=== PATIENT | male | born 1965 | race Caucasian/White ===

== ENCOUNTER 2017-09-13 22:58 | Inpatient (IN) | payer MEDICAID, OTHER ==
[~2017-09-13] VITALS: Ht 182.9 cm; Wt 65.1 kg
[2017-09-13 23:02] VITALS: Ht 182.9 cm; Wt 65.1 kg
[2017-09-13] MEDS ORDERED: METHYLPREDNISOLONE 125 MG INJ IV STA (23:16)
[2017-09-13] MEDS ORDERED: ALBUTEROL 0.5% (NEB) 2.5 MG/0.5 ML AMP INH STA (23:16)
[2017-09-13 23:48] LABS: BASOPHILS % 0.4 % (0.0-2.0); EOSINOPHILS # 0.1 10^3/ul (0.0-0.5); EOSINOPHILS % 0.9 % (0.0-7.0); HEMATOCRIT 44.2 % (42.0-52.0); HEMOGLOBIN 14.2 g/dl (14.0-18.0); LYMPHOCYTES # 2.2 10^3/ul (0.8-2.9); LYMPHOCYTES % 22.9 % (15.0-51.0); MEAN CORPUSCULAR HEMOGLOBIN 32.5 pg (29.0-33.0); MEAN CORPUSCULAR HGB CONC 32.1 g/dl (32.0-37.0); MEAN CORPUSCULAR VOLUME 101.1 fl (82.0-101.0); MEAN PLATELET VOLUME 10.7 fl (7.4-10.4); MONOCYTE # 0.9 10^3/ul (0.3-0.9); MONOCYTES % 9.6 % (0.0-11.0); NEUTROPHIL # 6.2 10^3/ul (1.6-7.5); NEUTROPHILS % 65.3 % (39.0-77.0); PLATELET COUNT 244 10^3/UL (140-415); RED BLOOD COUNT 4.37 10^6/ul (4.70-6.10); RED CELL DISTRIBUTION WIDTH 13.9 % (11.5-14.5); WHITE BLOOD COUNT 9.5 10^3/ul (4.8-10.8)
--- NOTE | 2017-09-13 23:55 | RADRPT ---
PROCEDURE: XR Chest. CLINICAL INDICATION: Dyspnea and chest pain. TECHNIQUE: 2 frontal views of the chest. COMPARISON: None. FINDINGS: Prominent cardiomegaly. Mild right infrahilar airspace disease is nonspecific. Nodular/reticular int erstitial markings are seen and consider CT correlation. No signs of pleural fluid or pneumothorax a re seen. The osseous structures and soft tissues are unremarkable. IMPRESSION: 1. Possible right infrahilar airspace disease. 2. Nodular reticular interstitial markings are seen and consider CT correlation. RPTAT: [facility] Physician Demetrius Date Time Electronically viewed and signed by Physician Demetrius on 09/13/2017 23:55 RS/
[2017-09-14] VITALS (11 sets, daily range): BP systolic 98–115; BP diastolic 64–84; PULSE 83–93; RESP 19–26; TEMP 98.1
[2017-09-14 00:12] LABS: Arterial Base Excess -9.2 mmol/L (-3.0-3); Arterial COHb 0.8 % (0.0-3.0); Arterial Fraction of Oxyhgb 98.4 % (93.0-99.0); Arterial HCO3 14.2 mmol/L (22.0-26.0); Arterial MetHb 0.2 % (0.0-1.5); Arterial Total Hemglobin 15.1 g/dl (12.0-18.0); Blood Gas IEPAP 15/5; Blood Gas PS 10; MODE MASK - BIPAP
[2017-09-14 00:13] LABS: CALCIUM 9.2 mg/dl (8.4-10.2); CREATININE 2.02 mg/dl (0.61-1.24); POTASSIUM 5.6 mmol/L (3.5-5.1)
--- NOTE | 2017-09-14 00:23 | ERA ---
ER Documentation Chief Complaint Date/Time DATE: 09/14/17 TIME: 00:19 Chief Complaint BIBA for SOB, pt has hx chf HPI This is a 52-year-old male complains of shortness of breath. The patient states he has had some gradual worsening shortness of breath for the past 3 days. He says he had a slight dry cough but no fever. Says he has a history of heart failure and that his breathing got worse about 2-3 hours prior to arrival. Denies any chest pain denies any swelling in the legs the patient was brought in by EMS and had been given 5 sprays of sublingual nitroglycerin prior to arrival for heart failure and not for chest pain. Patient had a hard time wearing the CPAP mask by EMS but agreed to do it here to avoid intubation ROS All systems reviewed and are negative except as per history of present illness. Allergies Allergies: Coded Allergies: No Known Allergy (Unverified , 09/13/17) PMhx/Soc Hx Cardiac Disorders: Yes (CHF) Hx Tobacco Use: Yes Smoking Status: Current every day smoker FmHx Family History: No coronary disease Physical Exam Vitals Vital Signs Date Time Temp Pulse Resp B/P Pulse Ox O2 Delivery O2 Flow Rate FiO2 09/14/17 00:51 85 100 50 09/13/17 23:10 94 100 50 09/13/17 23:02 97.9 97 44 124/97 97 Physical Exam Const: Well-developed, well-nourished, moderate distress Head: Atraumatic, normocephalic Eyes: Normal Conjunctiva, PERRLA, EOMI, normal sclera, no nystagmus ENT: Normal External Ears, Nose and Mouth, moist mucus membranes. Neck: Full range of motion. No meningismus, no lymphadenopathy. Resp: Moderate to severe increased work of breathing, distant breath sounds with some crackles throughout Cardio: Tachycardia no murmurs, S1 S2 present Abd: Soft, non tender x 4, non distended. Normal bowel sounds, no guarding or rebound, no pulsitile abdominal masses or bruits Skin: No petechiae or rashes, no ecchymosis , no maculopapular rash Back: No midline or flank tenderness Ext: No cyanosis, or edema, FROM x 4, normal inspection, neurovascularly intact x 4 Neur: Awake and alert, STR 5/5 x 4, sensation intact x 4, no focal findings, cerebellum intact Psych: Normal Mood and Affect Result Diagram: 09/13/17 2330 09/13/17 2330 Results 24 hrs Laboratory Tests Test 09/13/17 23:30 09/13/17 23:45 White Blood Count 9.510^3/ul Red Blood Count 4.3710^6/ul Hemoglobin 14.2g/dl Hematocrit 44.2% Mean Corpuscular Volume 101.1fl Mean Corpuscular Hemoglobin 32.5pg Mean Corpuscular Hemoglobin Concent 32.1g/dl Red Cell Distribution Width 13.9% Platelet Count 33242^3/UL Mean Platelet Volume 10.7fl Neutrophils % 65.3% Lymphocytes % 22.9% Monocytes % 9.6% Eosinophils % 0.9% Basophils % 0.4% Nucleated Red Blood Cells % 0.0/100WBC Neutrophils # 6.210^3/ul Lymphocytes # 2.210^3/ul Monocytes # 0.910^3/ul Eosinophils # 0.110^3/ul Basophils # 0.010^3/ul Nucleated Red Blood Cells # 0.010^3/ul Sodium Level 138mmol/L Potassium Level 5.6mmol/L Chloride Level 100mmol/L Carbon Dioxide Level 18mmol/L Anion Gap 26 Blood Urea Nitrogen 48mg/dl Creatinine 2.02mg/dl Glucose Level 60mg/dl Calcium Level 9.2mg/dl Troponin I 0.053ng/ml B-Type Natriuretic Peptide 80184GY/ML Blood Gas Specimen Source Blood arterial Arterial Blood Date Drawn 09/14/2017 12:00:55 AM Arterial Blood pH (Temp corrected) 7.360 Arterial Blood pCO2 (Temp correct) 25.8mmhg Arterial Blood pO2 (Temp corrected) 259.5mmHG Arterial Blood HCO3 14.2mmol/L Arterial Blood Base Excess -9.2mmol/L Arterial Blood Oxygen Saturation 99.4mmHG Titus Test N/A Arterial Blood Gas Puncture Site Right Brachial Arterial Blood Carboxyhemoglobin 0.8% Arterial Blood Methemoglobin 0.2% Blood Gas A-a O2 Differential 68.0mmHg Oxyhemoglobin Percent 98.4% Total Hemoglobin 15.1g/dl Blood Gas Temperature 37.0C Blood Gas Respiration Rate 12.0 Blood Gas Actual Respiration Rate 30 Blood Gas Modality MASK - BIPAP FiO2 50.0% Blood Gas Pressure Support 10 Blood Gas IPAP/EPAP Ratio 15/5 Blood Gas Notified Whom UP Blood Gas Notified Time 09/14/2017 12:11:31 AM Current Medications Medications (Trade) Dose Ordered Sig/Aftab Route PRN Reason Start Time Stop Time Status Last Admin Dose Admin Methylprednisolone Sodium Succinate (Solu-Medrol) 125 mg ONCE STAT IV 09/13/17 23:16 09/13/17 23:19 DC 09/13/17 23:54 Albuterol (Proventil 0.5% (Neb)) 10 mg ONCE STAT INH 09/13/17 23:16 09/13/17 23:19 DC 09/13/17 23:22 Lorazepam (Ativan) 1 mg ONCE ONCE IV 09/14/17 00:30 09/14/17 00:31 DC 09/14/17 00:43 Procedures/MDM EKG: Rate/Rhythm: Normal sinus rhythm heart rate 93, right superior axis deviation, left bundle branch block QRS, ST, QT: NORMAL AL, wide QRS, QT] Impression: Abnormal PROCEDURE: XR Chest. CLINICAL INDICATION: Dyspnea and chest pain. TECHNIQUE: 2 frontal views of the chest. COMPARISON: None. FINDINGS: Prominent cardiomegaly. Mild right infrahilar airspace disease is nonspecific. Nodular/reticular interstitial markings are seen and consider CT correlation. No signs of pleural fluid or pneumothorax are seen. The osseous structures and soft tissues are unremarkable. IMPRESSION: 1. Possible right infrahilar airspace disease. 2. Nodular reticular interstitial markings are seen and consider CT correlation. RPTAT: [facility] Physician Demetrius Date Time Electronically viewed and signed by Physician Demetrius on 09/13/2017 23:55 RS/ CC: IMTIAZ ZAMORA DO Patient was put on BiPAP and is breathing much better. He became claustrophobic and ripped it off. We will give Ativan IV then replace the BiPAP machine. Patient has possible airspace disease. Will get some cultures and give some antibiotics just in case he has pneumonia. Patient's BNP is markedly elevated will give some Lasix Critical Care Time: 30 minutes Treatments/Evaluations: Close monitoring and treatment of unstable vital signs, cardiorespiratory, and neurologic status, while maintaining tight balance of fluid, respiratory, and cardiac interventions. This time includes discussing the case with the patient and the patient's family. This time does not include all procedures stated elsewhere in this record. This time also includes reviewing old records, labs and radiological studies. This time includes examining and re-examining the patient. Additionally, this time also includes arranging care with admitting and consulting physicians. Departure Diagnosis: Primary Impression: Respiratory distress Additional Impression: CHF (congestive heart failure) Qualified Code: I50.9 - Acute on chronic congestive heart failure, unspecified congestive heart failure type Condition: Stable IMTIAZ ZAMORA DO Sep 14, 2017 00:23
[2017-09-14] MEDS ORDERED: LORAZEPAM 2 MG INJ IV ONE (00:30)
[2017-09-14 00:32] LABS: TROPONIN-I 0.053 ng/ml (0.00-0.12)
[2017-09-14] MEDS ORDERED: ACETAMINOPHEN 325 MG TAB PO PRN (01:30)
[2017-09-14] MEDS ORDERED: ONDANSETRON 4 MG INJ IV PRN ×2 (01:30)
[2017-09-14] MEDS ORDERED: NITROGLYCERIN (SL) 0.4 MG TAB SL PRN (01:30)
[2017-09-14] MEDS ORDERED: NACL 0.9% 3 ML SYG IV SCH (01:30)
[2017-09-14] MEDS ORDERED: FUROSEMIDE 40 MG INJ IV ONE (01:30)
--- NOTE | 2017-09-14 03:27 | RADRPT ---
PROCEDURE: CT chest without contrast. CLINICAL INDICATION: Pain TECHNIQUE: Noncontrast CT of the chest was performed utilizing axial images with reconstructions i n sagittal and coronal planes. The administered radiation dose is CTDI 6.6 mGy, DLP 277 mGy-cm. One or more of the following dose reduction techniques were used: automated exposure control, adjustment of the mA and/or kV according to patient size and/or use of iterative reconstruction technique. COMPARISON: No pertinent prior examinations are submitted for comparison. FINDINGS: Chest: Pulmonary emphysematous changes are present. There is a small right pleural effusion. Some debris is noted within the graciela and mainstem bronchi. A few scattered nodules are noted within both lungs. The largest of these is seen in the left lower lobe on image 77 of series 4 and measures up to 7 mm. There is moderate to marked cardiomegaly. No pericardial effusion is seen. Enlarged lymph nodes are seen within the prevascular, paratracheal, subcarinal and hilar regions. Bi lateral gynecomastia is noted. Visualized Upper abdomen: Unremarkable. Osseous structures: Multiple mild compression deformities are noted throughout the thoracic spine. N o definite acute fractures are seen. IMPRESSION: Multiple nodules throughout the lungs possibly due to infection or neoplasm. These measure up to 7 m m in the left lower lobe. Follow-up is recommended in 3-6 months and 18-24 months. Pulmonary emphysematous changes. Debris within the graciela and mainstem bronchi. Mediastinal and bilateral hilar adenopathy which is nonspecific. Small right pleural effusion. Compression deformities throughout the thoracic spine which are likely chronic unless the patient espinoza s acute back pain. RPTAT: HIKT .Fidel Taylor MD, Date Time Electronically viewed and signed by .Fidel Taylor MD, on 09/14/2017 03:27 .T/
[2017-09-14] MEDS ORDERED: LEVALBUTEROL (NEB) 0.31 MG/3 ML AMP HHN PRN (05:00)
[2017-09-14] MEDS ORDERED: DEXTROSE 50% 50 ML SYRINGE IV ONE (05:30)
[2017-09-14] MEDS: FUROSEMIDE 40 MG INJ IV SCH ×2 (05:34→18:25)
[2017-09-14] MEDS ORDERED: PANTOPRAZOLE 40 MG INJ IV SCH (06:00)
[2017-09-14 07:45] LABS: ADD UMIC NO; UR ASCORBIC ACID NEGATIVE (NEGATIVE); UR BILIRUBIN (Dip) NEGATIVE (NEGATIVE); UR BLOOD (Dip) NEGATIVE (NEGATIVE); UR CLARITY SLIGHTLY CLOUDY (CLEAR); UR COLOR YELLOW (YELLOW); UR GLUCOSE (Dip) NEGATIVE (NEGATIVE); UR KETONES (Dip) NEGATIVE (NEGATIVE); UR LEUKOCYTE ESTERASE (Dip) NEGATIVE Leu/ul (NEGATIVE); UR NITRITE (Dip) NEGATIVE (NEGATIVE); UR RBC 3 /HPF (0-5); UR SPECIFIC GRAVITY (Dip) 1.009 (1.003-1.030); UR TOTAL PROTEIN (Dip) NEGATIVE (NEGATIVE); UR UROBILINOGEN (Dip) NEGATIVE (NEGATIVE)
--- NOTE | 2017-09-14 07:45 | HP ---
Date/Time of Note Date/Time of Note DATE: 09/14/17 TIME: 07:39 Assessment/Plan VTE Prophylaxis VTE Prophylaxis Intervention: SCD's Lines/Catheters IV [facility]from [facility] Assessment/Plan Chief Complaint/Hosp Course This is a 52-year-old male being admitted to the telemetry floor for: #1 acute respiratory failure: Patient currently requiring BiPAP secondary to underlying copd and/or chf exacerbation. #2 shortness of breath: CHF versus COPD exacerbation. Patient's BNP is 26,000. There is diffuse expiratory wheezing on exam. Patient does not have any pitting edema of the bilateral lower extremities. At the current time we will treat with Lasix 40 mg IV twice daily. Will also continue breathing treatments with nebs every 4 hours. He received a loading dose of steroids in the ED. Will consider whether this needs to be continued. Will consult cardiology. Will order an echocardiogram. #3 Elevated BNP: secondary to CHF, though unclear if new onset or established secondary to patient not being able to provide a history at this time and no records. Will also check a urine drug screen to assess for drug related causes of heart failure #4 DVT GI prophylaxis: SCDs, acid miguel We will need to obtain further history from the patient when he is more arousable. Will also check a urine drug screen. further treatment strategy as per the clinical course. Problems: HPI/ROS Admit Date/Time Admit Date/Time Sep 14, 2017 at 01:12 Hx of Present Illness Chief complaint: Shortness of breath The following history was obtained from the ED physician documentation the patient was sleepy/somnolent during my examination this is a 52-year-old male complains of shortness of breath. The patient states he has had some gradual worsening shortness of breath for the past 3 days. He says he had a slight dry cough but no fever. Says he has a history of heart failure and that his breathing got worse about 2-3 hours prior to arrival. Denies any chest pain denies any swelling in the legs the patient was brought in by EMS and had been given 5 sprays of sublingual nitroglycerin prior to arrival for heart failure and not for chest pain. Patient had a hard time wearing the CPAP mask by EMS but agreed to do it here to avoid intubation. Of note in the ED patient was agitated and he was pulling off his BiPAP. He was given Ativan. Upon my examination patient was noted to be very sleepy likely secondary to the Ativan and he was not cooperative during his physical exam and history taking secondary to somnolence. Allergies: NKDA Medications: See KAYLEE PAGAN Subjective hx not possible: other (Patient sleepy/somnolent) PMH/Family/Social Past Medical History Unable to obtain secondary to patient's somnolence Past Surgical History Unable to obtain secondary to patient's somnolence Family History Significant Family History: other (Unable to obtain secondary to patient's somnolence) Social History Unable to obtain secondary to patient's somnolence Exam/Review of Systems Vital Signs Vitals Vital Signs Date Time Temp Pulse Resp B/P Pulse Ox O2 Delivery O2 Flow Rate FiO2 09/14/17 07:19 98.6 90 26 115/84 100 09/14/17 05:45 35 09/14/17 03:13 Room Air Exam Exam General: Patient is well-developed well-nourished The patient is alert oriented -3 lying comfortably in bed. HEENT: Atraumatic, normocephalic. The pupils are equal, round and reactive. Extraocular motor are intact Neck: Supple with full range of motion. No rigidity or meningismus Chest: Nontender Lungs: Clear to auscultation bilaterally no crackles rales or wheezing Heart: Normal S1-S2, Regular rhythm and rate. No murmur, S3, or S4 Abdomen: Soft , nontender, nondistended , bowel sounds are present. No guarding no rebound tenderness , No masses or organomegaly. No costovertebral temporal angle mass Extremities: Normal to inspection, no edema no cyanosis Neurologic: Normal mental status, speech normal, cranial nerves II through XII are intact, motor and sensory are intact, no focal weakness Additional Comments PROCEDURE: CT chest without contrast. CLINICAL INDICATION: Pain TECHNIQUE: Noncontrast CT of the chest was performed utilizing axial images with reconstructions in sagittal and coronal planes. The administered radiation dose is CTDI 6.6 mGy, DLP 277 mGy-cm. One or more of the following dose reduction techniques were used: automated exposure control, adjustment of the mA and/or kV according to patient size and/or use of iterative reconstruction technique. COMPARISON: No pertinent prior examinations are submitted for comparison. FINDINGS: Chest: Pulmonary emphysematous changes are present. There is a small right pleural effusion. Some debris is noted within the graciela and mainstem bronchi. A few scattered nodules are noted within both lungs. The largest of these is seen in the left lower lobe on image 77 of series 4 and measures up to 7 mm. There is moderate to marked cardiomegaly. No pericardial effusion is seen. Enlarged lymph nodes are seen within the prevascular, paratracheal, subcarinal and hilar regions. Bilateral gynecomastia is noted. Visualized Upper abdomen: Unremarkable. Osseous structures: Multiple mild compression deformities are noted throughout the thoracic spine. No definite acute fractures are seen. IMPRESSION: Multiple nodules throughout the lungs possibly due to infection or neoplasm. These measure up to 7 mm in the left lower lobe. Follow-up is recommended in 3- 6 months and 18-24 months. Pulmonary emphysematous changes. Debris within the graciela and mainstem bronchi. Mediastinal and bilateral hilar adenopathy which is nonspecific. Small right pleural effusion. Compression deformities throughout the thoracic spine which are likely chronic unless the patient has acute back pain. RPTAT: HIKT .Fidel Taylor MD, Date Time Electronically viewed and signed by .Fidel Taylor MD, MD on 09/14/2017 03:27 .T/ CC: JELENA THAO PROCEDURE: XR Chest. CLINICAL INDICATION: Dyspnea and chest pain. TECHNIQUE: 2 frontal views of the chest. COMPARISON: None. FINDINGS: Prominent cardiomegaly. Mild right infrahilar airspace disease is nonspecific. Nodular/reticular interstitial markings are seen and consider CT correlation. No signs of pleural fluid or pneumothorax are seen. The osseous structures and soft tissues are unremarkable. IMPRESSION: 1. Possible right infrahilar airspace disease. 2. Nodular reticular interstitial markings are seen and consider CT correlation. RPTAT: [facility] R Stecher, Physician Date Time Electronically viewed and signed by Kim Leiva Physician on 09/13/2017 23:55 RS/ CC: IMTIAZ ZAMORA DO Labs Result Diagram: 09/13/17232909/13/172329 Medications Medications Current Medications Ondansetron HCl (Zofran Inj) 4 mg Q6H PRN IV NAUSEA AND/OR VOMITING; Start at 01:30 Nitroglycerin (Nitroglycerin (Sl Tab) 0.4 Mg) 1 tab Q5M PRN SL CHEST PAIN; Start 09/14/17 at 01:30 Acetaminophen (Tylenol Tab) 650 mg Q6H PRN PO PAIN LEVEL 1-3 OR FEVER; Start 09/14/17 at 01:30 Pantoprazole (Protonix Iv) 40 mg DAILY@06 IV Last administered on 09/14/17t 05 :34; Admin Dose 40 MG; Start 09/14/17 at 06:00 JELENA THAO Sep 14, 2017 07:45
[2017-09-14 07:46] LABS: ABNORMAL IP MESSAGE 1; BASOPHILS % 0.1 % (0.0-2.0); HEMOGLOBIN 13.8 g/dl (14.0-18.0); LYMPHOCYTES # 0.5 10^3/ul (0.8-2.9); LYMPHOCYTES % 7.2 % (15.0-51.0); MEAN CORPUSCULAR HEMOGLOBIN 32.2 pg (29.0-33.0); MEAN CORPUSCULAR HGB CONC 33.7 g/dl (32.0-37.0); MEAN CORPUSCULAR VOLUME 95.8 fl (82.0-101.0); MEAN PLATELET VOLUME 10.9 fl (7.4-10.4); MONOCYTE # 0.1 10^3/ul (0.3-0.9); NEUTROPHIL # 6.3 10^3/ul (1.6-7.5); NEUTROPHILS % 90.1 % (39.0-77.0); PLATELET COUNT 209 10^3/UL (140-415); POSITIVE DIFF @See below; RED BLOOD COUNT 4.28 10^6/ul (4.70-6.10); RED CELL DISTRIBUTION WIDTH 13.9 % (11.5-14.5)
[2017-09-14 08:09] LABS: ALBUMIN 3.5 g/dl (3.3-4.9); ALBUMIN/GLOBULIN RATIO 0.94; CALCIUM 8.6 mg/dl (8.4-10.2); CHOL/HDL RATIO 6.1 RATIO; CREATININE 1.62 mg/dl (0.61-1.24); MAGNESIUM 1.9 mg/dl (1.7-2.5); POTASSIUM 3.9 mmol/L (3.5-5.1); TOTAL PROTEIN 7.2 g/dl (6.1-8.1)
[2017-09-14 08:29] LABS: TROPONIN-I 0.057 ng/ml (0.00-0.12)
[2017-09-14 08:30] LABS: CK-MB 4.01 ng/ml (0.0-2.4)
[2017-09-14 08:38] LABS: THYROID STIMULATING HORMONE 1.81 MIU/L (0.465-4.680)
[2017-09-14] MEDS: METHYLPREDNISOLONE 40 MG INJ IV SCH ×3 (10:45→21:30)
--- NOTE | 2017-09-14 11:55 | CONS ---
Date/Time of Note Date/Time of Note DATE: 09/14/17 TIME: 11:51 Assessment/Plan Assessment/Plan Additional Assessment/Plan Acute decompensated systolic congestive heart failure Cardiomyopathy Acute kidney injury Tobacco use Illicit drug use -In discussion with patient, he tells me he was diagnosed with congestive heart failure over a year ago and outside facility. He has been hospitalized approximately 3 times in the past year. When asked about illicit drug use, he does admit to the use of methamphetamine as well as "speed", first he said approximately 6 months ago and then later a few weeks ago. He tells me he does take Coreg, Aldactone and Lasix at home but is unclear on his compliance. CT chest with no significant volume overload. Would continue diuretics as renal function and blood pressure permits, start hydralazine for afterload reduction as blood pressure permits given renal dysfunction. Check echocardiogram. Initial 2 sets of cardiac enzymes have remained unremarkable. Maintain potassium above 4.0 and magnesium above 2.0. sales agent business services involvement. Consultation Date/Type/Reason Admit Date/Time Sep 14, 2017 at 01:12 Type of Consultation: cv Reason for Consultation Shortness of breath Hx of Present Illness This is a 52-year-old male with past medical history of congestive heart failure , tobacco use, illicit drug use who presents with progressive worsening shortness of breath over the past 3-4 days. Patient also complaining of cough which is been mildly productive with phlegm. Denies any chest pain, dizziness or lightheadedness. Since his admission, he is feeling better with less shortness of breath. Denies any fevers or chills. Denies any abdominal pain or nausea. He denies exertional chest pain but has been having shortness of breath at rest and with activity. 12 point review of systems was performed with all pertinent positives and negatives mentioned above and all else is negative Past Medical History Medical History: congestive heart failure, hypertension Family History Significant Family History: no pertinent family hx Social History Alcohol Use: none Smoking Status: Current every day smoker Drug Use: other (Methamphetamine, speed) Exam/Review of Systems Vital Signs Vitals Vital Signs Date Time Temp Pulse Resp B/P Pulse Ox O2 Delivery O2 Flow Rate FiO2 09/14/17 08:23 85 09/14/17 07:19 98.6 26 115/84 100 09/14/17 05:45 35 09/14/17 03:13 Room Air Exam Poor hygiene, no apparent distress Constitutional: alert, oriented Head: normocephalic Respiratory: other (Coarse breath sounds bilaterally, no wheezing) Cardiovascular: other (S1-S2 heard), regular rate and rhythm Gastrointestinal: bowel sounds, non-tender, soft Extremities: edema (Trace) Results Result Diagram: 09/14/17 0627 09/14/1727 Results 24 hrs Laboratory Tests Test 09/13/17 23:30 09/13/17 23:45 09/14/17 05:20 09/14/17 06:27 White Blood Count 9.5 7.0 # Red Blood Count 4.37 L 4.28 L Hemoglobin 14.2 13.8 L Hematocrit 44.2 41.0 L Mean Corpuscular Volume 101.1 H 95.8 Mean Corpuscular Hemoglobin 32.5 32.2 Mean Corpuscular Hemoglobin Concent 32.1 33.7 Red Cell Distribution Width 13.9 13.9 Platelet Count 244 209 Mean Platelet Volume 10.7 H 10.9 H Neutrophils % 65.3 90.1 H Lymphocytes % 22.9 7.2 L Monocytes % 9.6 2.0 Eosinophils % 0.9 0.0 Basophils % 0.4 0.1 Nucleated Red Blood Cells % 0.0 0.0 Neutrophils # 6.2 6.3 Lymphocytes # 2.2 0.5 L Monocytes # 0.9 0.1 L Eosinophils # 0.1 0.0 Basophils # 0.0 0.0 Nucleated Red Blood Cells # 0.0 0.0 Sodium Level 138 136 Potassium Level 5.6 H 3.9 Chloride Level 100 102 Carbon Dioxide Level 18 L 22 Anion Gap 26 H 16 # Blood Urea Nitrogen 48 H 57 H Creatinine 2.02 H 1.62 H Glucose Level 60 L 176 # Calcium Level 9.2 8.6 Troponin I 0.053 0.057 B-Type Natriuretic Peptide 88062 H Blood Gas Specimen Source Blood arterial Arterial Blood Date Drawn 09/14/2017 12:00:55 AM Arterial Blood pH (Temp corrected) 7.360 Arterial Blood pCO2 (Temp correct) 25.8 L Arterial Blood pO2 (Temp corrected) 259.5 H Arterial Blood HCO3 14.2 L Arterial Blood Base Excess -9.2 L Arterial Blood Oxygen Saturation 99.4 H Titus Test N/A Arterial Blood Gas Puncture Site Right Brachial Arterial Blood Carboxyhemoglobin 0.8 Arterial Blood Methemoglobin 0.2 Blood Gas A-a O2 Differential 68.0 H Oxyhemoglobin Percent 98.4 Total Hemoglobin 15.1 Blood Gas Temperature 37.0 Blood Gas Respiration Rate 12.0 Blood Gas Actual Respiration Rate 30 Blood Gas Modality MASK - BIPAP FiO2 50.0 Blood Gas Pressure Support 10 Blood Gas IPAP/EPAP Ratio 15/5 Blood Gas Notified Whom UP Blood Gas Notified Time 09/14/2017 12:11:31 AM Urine Color YELLOW Urine Clarity SLIGHTLY CLOUDY A Urine pH 5.0 Urine Specific [place] 1.009 Urine Ketones NEGATIVE Urine Nitrite NEGATIVE Urine Bilirubin NEGATIVE Urine Urobilinogen NEGATIVE Urine Leukocyte Esterase NEGATIVE Urine Microscopic RBC 3 Urine Microscopic WBC 1 Urine Hemoglobin NEGATIVE Urine Glucose NEGATIVE Urine Total Protein NEGATIVE Hemoglobin A1c 5.9 Magnesium Level 1.9 Total Bilirubin 3.0 H Direct Bilirubin 0.00 Indirect Bilirubin 3.0 H Aspartate Amino Transf (AST/SGOT) 539 H Alanine Aminotransferase (ALT/SGPT) 326 H Alkaline Phosphatase 121 Creatine Kinase 60 Creatine Kinase Index 6.7 Creatinine Kinase MB (Mass) 4.01 H Total Protein 7.2 Albumin 3.5 Globulin 3.70 H Albumin/Globulin Ratio 0.94 Triglycerides Level 55 Cholesterol Level 123 LDL Cholesterol, Calculated 92 HDL Cholesterol 20 L Cholesterol/HDL Ratio 6.1 Thyroid Stimulating Hormone (TSH) 1.810 Test 09/14/17 06:30 Bedside Glucose 170 Medications Medications Current Medications Ondansetron HCl (Zofran Inj) 4 mg Q6H PRN IV NAUSEA AND/OR VOMITING; Start at 01:30 Nitroglycerin (Nitroglycerin (Sl Tab) 0.4 Mg) 1 tab Q5M PRN SL CHEST PAIN; Start 09/14/17 at 01:30 Acetaminophen (Tylenol Tab) 650 mg Q6H PRN PO PAIN LEVEL 1-3 OR FEVER; Start 09/14/17 at 01:30 Pantoprazole (Protonix Iv) 40 mg DAILY@06 IV Last administered on 09/14/17 05 :34; Admin Dose 40 MG; Start 09/14/17 at 06:00 Methylprednisolone Sodium Succinate (Solu-Medrol) 30 mg Q8 IV Last administered on 09/14/17 10:45; Admin Dose 30 MG; Start 09/14/17 at 08:00 Procedures Procedures ECG done yesterday demonstrates sinus rhythm at 93 bpm, QRS 170 ms with left bundle branch block, nonspecific T-wave abnormalities Edgard Decker DO Sep 14, 2017 11:55
[2017-09-14] MEDS ORDERED: MAGNESIUM SULFATE 2 GM/50 ML 50 ML IVPB ONE (12:00)
[2017-09-14] MEDS ORDERED: POTASSIUM CHLORIDE (SR) 10 MEQ TAB PO ONE (12:00)
[2017-09-14 12:42] LABS: TROPONIN-I 0.04 ng/ml (0.00-0.12)
[2017-09-14 12:45] LABS: CK-MB 3.69 ng/ml (0.0-2.4)
[2017-09-14] MEDS: LORAZEPAM 0.5 MG TAB PO PRN (16:35)
[2017-09-15] VITALS (14 sets, daily range): BP systolic 92–115; BP diastolic 57–74; PULSE 72–157; RESP 18–20
[2017-09-15] MEDS: PANTOPRAZOLE (EC) 40 MG TAB PO SCH (05:01)
[2017-09-15] MEDS: FUROSEMIDE 40 MG INJ IV SCH ×2 (05:01→17:47)
[2017-09-15] MEDS: METHYLPREDNISOLONE 40 MG INJ IV SCH (05:02)
[2017-09-15 06:05] LABS: HAAIG REFLEX REFLEX FILED
[2017-09-15 06:16] LABS: ABNORMAL IP MESSAGE 1; BASOPHILS % 0.1 % (0.0-2.0); HEMATOCRIT 37.7 % (42.0-52.0); HEMOGLOBIN 12.8 g/dl (14.0-18.0); LYMPHOCYTES # 0.5 10^3/ul (0.8-2.9); LYMPHOCYTES % 3.4 % (15.0-51.0); MEAN CORPUSCULAR HEMOGLOBIN 32.6 pg (29.0-33.0); MEAN CORPUSCULAR VOLUME 95.9 fl (82.0-101.0); MEAN PLATELET VOLUME 11.1 fl (7.4-10.4); MONOCYTE # 0.3 10^3/ul (0.3-0.9); NEUTROPHIL # 13.8 10^3/ul (1.6-7.5); PLATELET COUNT 205 10^3/UL (140-415); POSITIVE DIFF @See below; RED BLOOD COUNT 3.93 10^6/ul (4.70-6.10); RED CELL DISTRIBUTION WIDTH 13.8 % (11.5-14.5); WHITE BLOOD COUNT 14.6 10^3/ul (4.8-10.8)
[2017-09-15 06:57] LABS: MAGNESIUM 2.2 mg/dl (1.7-2.5); PHOSPHORUS 3.6 mg/dl (2.5-4.9)
[2017-09-15 07:20] LABS: CALCIUM 8.3 mg/dl (8.4-10.2); CREATININE 1.28 mg/dl (0.61-1.24); POTASSIUM 3.7 mmol/L (3.5-5.1)
[2017-09-15 07:36] LABS: HEPATITIS B CORE ANTIBODY REACTIVE (NEGATIVE)
--- NOTE | 2017-09-15 08:15 | RADRPT ---
PROCEDURE: US Abdomen (right upper quadrant). CLINICAL INDICATION: Right upper quadrant abdomen pain. TECHNIQUE: Multiple real-time longitudinal and transverse images of the right upper quadrant of th e abdomen were acquired utilizing a curved array transducer. Images were reviewed on a high-resoluti on PACS workstation. COMPARISON: None FINDINGS: The liver is normal in size and normal in echogenicity. There is no focal hepatic lesion. Color Doppler and pulsed Doppler sonography demonstrate normal a ntegrade flow in the portal vein. There is a gallbladder polyp measuring 0.4 cm. There are no gallstones in the gallbladder. There is mild gallbladder wall thickening measuring 3.4 mm. There is no pericholecystic fluid collection. The bile ducts are normal with the common bile duct measuring 3.6 mm in diameter. The visualized portions of the pancreas are unremarkable with obscuration of the tail of the pancrea s. No free fluid is present. The right kidney measures 10.6 x 4.1 cm. There is normal echogenicity of the right kidney. The ri ght kidney is hyperechoic which may indicate medical renal disease. There is no right renal mass or calculus. There is mild right hydronephrosis with no obstructing lesion visualized. IMPRESSION: 1. Gallbladder polyp measuring 0.4 cm. Follow-up ultrasound in 6 months is advised. 2. Mild gallbladder wall thickening. No gallstones. 3. Hyperechoic right kidney which may indicate medical renal disease. 4. Mild right hydronephrosis with no obstructing lesion visualized. Clinical correlation is advised . 5. Otherwise normal right upper quadrant abdomen ultrasound. RPTAT: QQ .Fly Taveras MD, MD Date Time Electronically viewed and signed by .Fly Taveras MD, MD on 09/15/2017 08:15 .R/
--- NOTE | 2017-09-15 09:59 | PN ---
Date/Time of Note Date/Time of Note DATE: 09/15/17 TIME: 09:58 Assessment/Plan VTE Prophylaxis VTE Prophylaxis Intervention: SCD's Lines/Catheters IV [facility]ter Type (from [facility]): Peripheral IV Urinary Cath still in place: No Assessment/Plan Chief Complaint/Hosp Course 1. Acute respiratory failure. Hypoxic. Most probably secondary to combination of COPD exacerbation and CHF exacerbation. Currently improved. Continue inhaled bronchodilators. Diuresis as per cardiology. Continue tapering dose of steroids. 2. Acute decompensated systolic congestive heart failure. The patient being followed by cardiology. Continue diuresis as per cardiology. 3. Cardiomyopathy. The patient being followed by cardiology. To be started on beta-blockers and DIONNA inhibitors if blood pressure allows. 4. Nicotine use. Cessation advised. Nicotine patch. 5. Acute kidney injury. Nonoliguric. Most probably secondary to hemodynamics and prerenal azotemia. Improving. Use nephrotoxic drugs with caution. 6. COPD. Continue inhaled bronchodilators. Start maintenance inhalers. 7. Transaminitis with hyperbilirubinemia. Etiology unclear. Hepatitis B surface antibody positive, hepatitis B core total antibody positive. Avoid hepatotoxic medications. Will involve gastroenterology on the case. Liver ultrasound showing mild gallbladder wall thickening and no gallstones with a gallbladder polyp measuring 0.4 cm. 8. Nonsustained ventricular tachycardia. Cardiology following. Currently in sinus rhythm. 9. Fluids, electrolytes, and nutrition. Low-cholesterol diet. 10. DVT prophylaxis. Bilateral sequential compression devices. 11. Plan. Continue careful diuresis. Taper down steroids. Start maintenance inhalers. Obtain gastroenterology consult. Case discussed with Dr. Putnam. Problems: Subjective 24 Hr Interval Summary Free Text/Dictation Denies any dyspnea. Denies any chest pain. Exam/Review of Systems Vital Signs Vitals Vital Signs Date Time Temp Pulse Resp B/P Pulse Ox O2 Delivery O2 Flow Rate FiO2 09/15/17 09:20 Nasal Cannula 4.0 09/15/17 08:16 94 09/15/17 07:51 97.7 19 115/74 98 09/14/17 05:45 35 Intake and Output 09/14/17 09/14/17 09/15/17 15:00 23:00 07:00 Intake Total 800 ml 500 ml Output Total 1200 ml Balance 800 ml -700 ml Exam General: Adequately build 52 year-old male lying in bed in no apparent distress. HEENT: Normocephalic, atraumatic. Eyes: Anicteric sclerae, conjunctivae clear. ENT: Nasal septum midline, oral mucosa moist. Neck supple, no JVD noticed. Respiratory: Bilaterally diminished breath sounds. No use of accessory muscles of respiration. No adventitious breath sounds. Cardiovascular: S1, S2 heard. No murmurs or gallops. Abdomen: Soft, nontender, and nondistended. Bowel sounds positive in all 4 quadrants. Genitourinary: Deferred. Extremities: No cyanosis no edema. Peripheral pulses palpable. Neurologic: Cranial nerves II through XII grossly intact. The patient is awake, alert, and oriented. Skin: Normal skin turgor. No skin rashes. Results Result Diagram: 09/15/1743 09/15/1743 Results 24 hrs Laboratory Tests Test 09/14/17 11:32 09/15/17 05:43 Creatine Kinase 99 Creatine Kinase Index 3.7 Creatinine Kinase MB (Mass) 3.69 H Troponin I 0.040 White Blood Count 14.6 #H Red Blood Count 3.93 L Hemoglobin 12.8 L Hematocrit 37.7 L Mean Corpuscular Volume 95.9 Mean Corpuscular Hemoglobin 32.6 Mean Corpuscular Hemoglobin Concent 34.0 Red Cell Distribution Width 13.8 Platelet Count 205 Mean Platelet Volume 11.1 H Neutrophils % 94.0 H Lymphocytes % 3.4 L Monocytes % 2.0 Eosinophils % 0.0 Basophils % 0.1 Nucleated Red Blood Cells % 0.0 Neutrophils # 13.8 H Lymphocytes # 0.5 L Monocytes # 0.3 Eosinophils # 0.0 Basophils # 0.0 Nucleated Red Blood Cells # 0.0 Sodium Level 136 Potassium Level 3.7 Chloride Level 100 Carbon Dioxide Level 27 Anion Gap 13 Blood Urea Nitrogen 47 H Creatinine 1.28 H Glucose Level 150 Calcium Level 8.3 L Phosphorus Level 3.6 Magnesium Level 2.2 Hepatitis A Antibody Total NEGATIVE Hepatitis B Surface Antigen NEGATIVE Hepatitis B Surface Antibody POSITIVE H Hepatitis B Core Total Antibody REACTIVE H Hepatitis C Antibody NEGATIVE Medications Medications Current Medications Ondansetron HCl (Zofran Inj) 4 mg Q6H PRN IV NAUSEA AND/OR VOMITING; Start at 01:30 Nitroglycerin (Nitroglycerin (Sl Tab) 0.4 Mg) 1 tab Q5M PRN SL CHEST PAIN; Start 09/14/17 at 01:30 Acetaminophen (Tylenol Tab) 650 mg Q6H PRN PO PAIN LEVEL 1-3 OR FEVER; Start 09/14/17 at 01:30 Methylprednisolone Sodium Succinate (Solu-Medrol) 30 mg Q8 IV Last administered on 09/15/17 05:02; Admin Dose 30 MG; Start 09/14/17 at 08:00 Hydralazine HCl (Apresoline) 10 mg BID PO Last administered on 09/15/17 09:16 ; Admin Dose 10 MG; Start 09/14/17 at 12:00 Pantoprazole (Protonix Tab) 40 mg DAILY@06 PO Last administered on 09/15/17 05:01; Admin Dose 40 MG; Start 09/15/17 at 06:00 Lorazepam (Ativan) 0.5 mg Q8H PRN PO ANXIETY Last administered on 09/14/17 16 :35; Admin Dose 0.5 MG; Start 09/14/17 at 15:30 Salmeterol Xinafoate/ Fluticasone (Advair 250/50 Diskus) 1 inh BID INH ; Start 09/15/17 at 11:00 DUARTE HERNANDEZ NP Sep 15, 2017 09:59
[2017-09-15] MEDS ORDERED: METHYLPREDNISOLONE (MEDROL) DOSE PACK PO SCH (10:00)
[2017-09-15] MEDS ORDERED: METHYLPREDNISOLONE 4 MG TAB PO SCH (10:00)
[2017-09-15] MEDS: NICOTINE (14 MG/24 HR) PATCH TRANSDERM SCH (10:52)
[2017-09-15] MEDS: SALMETEROL/FLUTICASONE 250/50 INHA INH SCH ×2 (10:52→20:04)
[2017-09-15 10:56] LABS: ALBUMIN 3.1 g/dl (3.3-4.9); BILIRUBIN,INDIRECT 1.5 mg/dl (0-1.1); BILIRUBIN,TOTAL 1.5 mg/dl (0.2-1.3); TOTAL PROTEIN 6.4 g/dl (6.1-8.1)
--- NOTE | 2017-09-15 10:57 | CONS ---
Date/Time of Note Date/Time of Note DATE: 09/15/17 TIME: 10:48 Assessment/Plan Assessment/Plan Chief Complaint/Hosp Course Impression: 1. Acute respiratory failure. Hypoxic. Most probably secondary to combination of COPD exacerbation and CHF exacerbation. Currently improved. 2. Acute decompensated systolic congestive heart failure. The patient being followed by cardiology. 3. Cardiomyopathy. The patient being followed by cardiology. 4. Nicotine use. 5. Transaminase elevation and hyperbilirubinemia: likely due to CHF exacerbation. Bili is all indirect. Patient cleared HBV due to HBV surface antigen negative and positive HBV antibody. 6. COPD. Continue inhaled bronchodilators. Start maintenance inhalers. 7. gallbladder wall thickening with a gallbladder polyp measuring 0.4 cm. Impression: 1. treat CHF as it it most likely cause of transaminases and indirect bilirubinemia 2. consider hematology eval for indirect bilirubinemia 3. consider surgery eval for gallbladder polyp. Cholecystectomy is indicated for gallbladder polyp of any size and cholecystitis or biliary colic 4. continue all supportive care Problems: Consultation Date/Type/Reason Admit Date/Time Sep 14, 2017 at 01:12 Date of Consultation: Sep 15, 2017 Type of Consultation: GI Reason for Consultation 52-year-old male who is admitted for shortness of breath. The patient states he has had some gradual worsening shortness of breath for the past 3 days. He says he had a slight dry cough but no fever. He has a history of heart failure and that his breathing got worse about 2-3 hours prior to arrival. Denies any chest pain denies any swelling in the legs the patient was brought in by EMS and had been given 5 sprays of sublingual nitroglycerin prior to arrival for heart failure and not for chest pain. GI consulted for hyperbilirubinemia but all indirect and elevated transaminases. He says he was drinking alcohol but refuse to quantitate amount. All point ROS administered. Pertinent positives and negatives in HPI otherwise negative. Past Medical History Medical History: congestive heart failure, hypertension Past Surgical History Past Surgical Hx: no surgical history Family History Significant Family History: no pertinent family hx Social History Alcohol Use: none Smoking Status: Current every day smoker Drug Use: other (Methamphetamine, speed) Exam/Review of Systems Vital Signs Vitals Vital Signs Date Time Temp Pulse Resp B/P Pulse Ox O2 Delivery O2 Flow Rate FiO2 09/15/17 10:40 4.0 09/15/17 09:20 Nasal Cannula 09/15/17 08:16 94 09/15/17 07:51 97.7 19 115/74 98 09/14/17 05:45 35 Intake and Output 09/14/17 09/14/17 09/15/17 15:00 23:00 07:00 Intake Total 800 ml 500 ml Output Total 1200 ml Balance 800 ml -700 ml Exam Constitutional: alert, oriented, well developed Psych: nl mood/affect, no complaints Head: atraumatic, normocephalic Eyes: EOMI, nl conjunctiva, nl lids, nl sclera ENMT: mucosa pink and moist, nl external ears & nose, nl lips & teeth, nl nasal mucosa & septum Neck: non-tender, supple Respiratory: congested cough, crackles/rales Cardiovascular: nl pulses, regular rate and rhythm Gastrointestinal: bowel sounds, non-tender, soft Musculoskeletal: nl extremities to inspection, nl gait and stance Neurological: nl mental status, nl speech, nl strength Results Result Diagram: 09/15/17 0543 09/15/1743 Results 24 hrs Laboratory Tests Test 09/14/17 11:32 09/15/17 05:43 Creatine Kinase 99 Creatine Kinase Index 3.7 Creatinine Kinase MB (Mass) 3.69 H Troponin I 0.040 White Blood Count 14.6 #H Red Blood Count 3.93 L Hemoglobin 12.8 L Hematocrit 37.7 L Mean Corpuscular Volume 95.9 Mean Corpuscular Hemoglobin 32.6 Mean Corpuscular Hemoglobin Concent 34.0 Red Cell Distribution Width 13.8 Platelet Count 205 Mean Platelet Volume 11.1 H Neutrophils % 94.0 H Lymphocytes % 3.4 L Monocytes % 2.0 Eosinophils % 0.0 Basophils % 0.1 Nucleated Red Blood Cells % 0.0 Neutrophils # 13.8 H Lymphocytes # 0.5 L Monocytes # 0.3 Eosinophils # 0.0 Basophils # 0.0 Nucleated Red Blood Cells # 0.0 Sodium Level 136 Potassium Level 3.7 Chloride Level 100 Carbon Dioxide Level 27 Anion Gap 13 Blood Urea Nitrogen 47 H Creatinine 1.28 H Glucose Level 150 Calcium Level 8.3 L Phosphorus Level 3.6 Magnesium Level 2.2 Hepatitis A Antibody Total NEGATIVE Hepatitis B Surface Antigen NEGATIVE Hepatitis B Surface Antibody POSITIVE H Hepatitis B Core Total Antibody REACTIVE H Hepatitis C Antibody NEGATIVE Medications Medications Current Medications Ondansetron HCl (Zofran Inj) 4 mg Q6H PRN IV NAUSEA AND/OR VOMITING; Start at 01:30 Nitroglycerin (Nitroglycerin (Sl Tab) 0.4 Mg) 1 tab Q5M PRN SL CHEST PAIN; Start 09/14/17 at 01:30 Acetaminophen (Tylenol Tab) 650 mg Q6H PRN PO PAIN LEVEL 1-3 OR FEVER; Start 09/14/17 at 01:30 Hydralazine HCl (Apresoline) 10 mg BID PO Last administered on 09/15/17 09:16 ; Admin Dose 10 MG; Start 09/14/17 at 12:00 Pantoprazole (Protonix Tab) 40 mg DAILY@06 PO Last administered on 09/15/17 05:01; Admin Dose 40 MG; Start 09/15/17 at 06:00 Lorazepam (Ativan) 0.5 mg Q8H PRN PO ANXIETY Last administered on 09/14/17 16 :35; Admin Dose 0.5 MG; Start 09/14/17 at 15:30 Salmeterol Xinafoate/ Fluticasone (Advair 250/50 Diskus) 1 inh BID INH ; Start 09/15/17 at 11:00 Nicotine (Nicoderm 14 Mg/ 24hr) 1 patch DAILY TRANSDERM ; Start 09/15/17 at 11: 00 Methylprednisolone (Medrol) 8 mg HS PO ; Start 09/16/17 at 21:00; Stop at 21:01 Methylprednisolone (Medrol) 4 mg HS PO ; Start 09/17/17 at 21:00; Stop at 21:01 Methylprednisolone (Medrol) 24 mg ONCE PO ; Start 09/15/17 at 10:00; Stop at 23:45 MERNA LEARY MD Sep 15, 2017 10:57
[2017-09-15] MEDS ORDERED: POTASSIUM CHLORIDE (SR) 20 MEQ TAB PO STA (11:53)
--- NOTE | 2017-09-15 11:53 | CONS ---
Date/Time of Note Date/Time of Note DATE: 09/15/17 TIME: 11:49 Assessment/Plan Assessment/Plan Additional Assessment/Plan Acute decompensated systolic congestive heart failure Cardiomyopathy Acute kidney injury Tobacco use NSVT Illicit drug use -In discussion with patient, he tells me he was diagnosed with congestive heart failure over a year ago and outside facility. He has been hospitalized approximately 3 times in the past year for congestive heart failure. When asked about illicit drug use, he does admit to the use of methamphetamine as well as "speed", first he said approximately 6 months ago and then later a few weeks ago. He appears more euvolemic. Would switch Lasix to daily, start Coreg , if renal function continues to improve, would switch hydralazine to DIONNA inhibitor. Maintain potassium above 4.0 and magnesium above 2.0. Consultation Date/Type/Reason Admit Date/Time Sep 14, 2017 at 01:12 Initial Consult Date 09/15/17 Type of Consultation: cv 24 HR Interval Summary Free Text/Dictation Shortness of breath is better today, less symptoms with ambulation, denies chest pain or palpitations Exam/Review of Systems Vital Signs Vitals Vital Signs Date Time Temp Pulse Resp B/P Pulse Ox O2 Delivery O2 Flow Rate FiO2 09/15/17 11:30 98.2 95 18 106/74 100 09/15/17 10:40 4.0 09/15/17 09:20 Nasal Cannula 09/14/17 05:45 35 Intake and Output 09/14/17 09/14/17 09/15/17 15:00 23:00 07:00 Intake Total 800 ml 500 ml Output Total 1200 ml Balance 800 ml -700 ml Exam No apparent distress, disheveled Constitutional: alert, oriented Head: normocephalic Respiratory: other (Coarse breath sounds bilaterally, no wheezing) Cardiovascular: other (S1-S2 heard), regular rate and rhythm Gastrointestinal: bowel sounds, non-tender, soft Extremities: edema (Trace) Results Result Diagram: 09/15/1743 09/15/1743 Results 24 hrs Laboratory Tests Test 09/15/17 05:43 White Blood Count 14.6 #H Red Blood Count 3.93 L Hemoglobin 12.8 L Hematocrit 37.7 L Mean Corpuscular Volume 95.9 Mean Corpuscular Hemoglobin 32.6 Mean Corpuscular Hemoglobin Concent 34.0 Red Cell Distribution Width 13.8 Platelet Count 205 Mean Platelet Volume 11.1 H Neutrophils % 94.0 H Lymphocytes % 3.4 L Monocytes % 2.0 Eosinophils % 0.0 Basophils % 0.1 Nucleated Red Blood Cells % 0.0 Neutrophils # 13.8 H Lymphocytes # 0.5 L Monocytes # 0.3 Eosinophils # 0.0 Basophils # 0.0 Nucleated Red Blood Cells # 0.0 Sodium Level 136 Potassium Level 3.7 Chloride Level 100 Carbon Dioxide Level 27 Anion Gap 13 Blood Urea Nitrogen 47 H Creatinine 1.28 H Glucose Level 150 Calcium Level 8.3 L Phosphorus Level 3.6 Magnesium Level 2.2 Total Bilirubin 1.5 H Direct Bilirubin 0.00 Indirect Bilirubin 1.5 H Aspartate Amino Transf (AST/SGOT) 247 #H Alanine Aminotransferase (ALT/SGPT) 267 H Alkaline Phosphatase 105 Total Protein 6.4 Albumin 3.1 L Hepatitis A Antibody Total NEGATIVE Hepatitis B Surface Antigen NEGATIVE Hepatitis B Surface Antibody POSITIVE H Hepatitis B Core Total Antibody REACTIVE H Hepatitis C Antibody NEGATIVE Medications Medications Current Medications Ondansetron HCl (Zofran Inj) 4 mg Q6H PRN IV NAUSEA AND/OR VOMITING; Start at 01:30 Nitroglycerin (Nitroglycerin (Sl Tab) 0.4 Mg) 1 tab Q5M PRN SL CHEST PAIN; Start 09/14/17 at 01:30 Acetaminophen (Tylenol Tab) 650 mg Q6H PRN PO PAIN LEVEL 1-3 OR FEVER; Start 09/14/17 at 01:30 Hydralazine HCl (Apresoline) 10 mg BID PO Last administered on 09/15/17 09:16 ; Admin Dose 10 MG; Start 09/14/17 at 12:00 Pantoprazole (Protonix Tab) 40 mg DAILY@06 PO Last administered on 09/15/17 05:01; Admin Dose 40 MG; Start 09/15/17 at 06:00 Lorazepam (Ativan) 0.5 mg Q8H PRN PO ANXIETY Last administered on 09/14/17 16 :35; Admin Dose 0.5 MG; Start 09/14/17 at 15:30 Salmeterol Xinafoate/ Fluticasone (Advair 250/50 Diskus) 1 inh BID INH Last administered on 09/15/17 10:52; Admin Dose 1 INH; Start 09/15/17 at 11:00 Nicotine (Nicoderm 14 Mg/ 24hr) 1 patch DAILY TRANSDERM Last administered on 10:52; Admin Dose 1 PATCH; Start 09/15/17 at 11:00 Methylprednisolone (Medrol) 8 mg HS PO ; Start 09/16/17 at 21:00; Stop at 21:01 Methylprednisolone (Medrol) 4 mg HS PO ; Start 09/17/17 at 21:00; Stop at 21:01 Methylprednisolone (Medrol) 24 mg ONCE PO Last administered on 09/15/17 10:57 ; Admin Dose 24 MG; Start 09/15/17 at 10:00; Stop 09/15/17 at 23:45 Edgard Decker DO Sep 15, 2017 11:52
[2017-09-15] MEDS ORDERED: MAGNESIUM SULFATE 1 GM/D5W 100 ML IVPB ONE (13:00)
--- NOTE | 2017-09-15 14:00 | RADRPT ---
Echocardiogram Report Patient Name: ANN RODRIGUEZ Gender: Male Date: 1965 Study Date: 14-Sep-2017 Ceramic Sprayer: Serjio [facility] Location: [id number] Ref. Physician: JELENA THAO Quality: Adequate Procedures: Transthoracic echocardiogram with complete 2D, M-Mode, and doppler examination. Indications: Shortness of breath. 2D/M Mode Doppler Measurement Value Normal Ranges Measurement Value Normal Ranges LVIDd 2D 8.2 3.5 - 5.6 cm AV Peak Remi 0.8 m/sec LVIDs 2D 7.3 2.1 - 4.1 cm AV Peak PG 3.0 mmHg FS 2D 10.6 % LVOT Peak Remi 0.4 m/sec LVPWd 2D 1.1 0.6 - 1.1 cm LVOT Peak PG 1.0 mmHg IVSd 2D 0.9 0.6 - 1.1 cm MV E Peak Remi 1.1 m/sec IVS/LVPW 2D 0.8 MV A Peak Remi 0.8 m/sec AoR Diam 2D 2.6 2.0 - 3.7 cm MV E/A 1.4 LA/Ao 2D 2 0 - 1 MV Decel Time 102 msec EDV 2D 555.0 cm3 MV E/A 1.4 ESV 2D 397.0 cm3 MR Peak PG 112.0 mmHg LA Dimen 2D 5.0 2.3 - 4.0 cm MR Peak Remi 5.3 m/sec TR Peak Remi 3.3 m/sec TR Peak PG 44.0 mmHg RVSP 59.0 mmHg Findings Left Ventricle: Normal left ventricular wall thickness. Severe enlargement of left ventricle cavity. Severe global left ventricular systolic dysfunction. Ejection fraction is visually estimated at 20 %. Abnormal Diastolic Function. Right Ventricle: Normal right ventricular size. Normal right ventricular systolic function. Left Atrium: There is moderate enlargement of left atrium. Right Atrium: The right atrium is normal in size. Mitral Valve: Mild mitral leaflet calcification. Mild mitral annular calcification. Moderate to severe mitral valve regurgitation. Aortic Valve: No significant aortic stenosis. Aortic cusps appear mildly calcified. Trace aortic valve regurgitation. Tricuspid Valve: Normal appearance of the tricuspid valve. Estimated peak PA systolic pressure 59 mmHg. There is mild to moderate tricuspid regurgitation. Pulmonic Valve: Normal pulmonic valve appearance. There is trace pulmonic regurgitation. Pericardium: Normal pericardium with no significant pericardial effusion. Aorta: Normal aortic root. IVC: Dilated IVC with poor respiratory collapse, however, patient on BiPaP. Conclusions 1.Normal left ventricular wall thickness. Severe enlargement of left ventricle cavity. Severe global left ventricular systolic dysfunction. Ejection fraction is visually estimated at 20 %. Abnormal Diastolic Function. 2.Normal right ventricular size. Normal right ventricular systolic function. 3.There is moderate enlargement of left atrium. 4.The right atrium is normal in size. 5.Moderate to severe mitral valve regurgitation. 6.No significant aortic stenosis. Trace aortic valve regurgitation. 7.Estimated peak PA systolic pressure 59 mmHg. There is mild to moderate tricuspid regurgitation. 8.Normal pericardium with no significant pericardial effusion. Electronically Signed By: Edgard Decker 15-Sep-2017 13:58:58 -0700 Patient Name: ANN RODRIGUEZ Study Date: 14-Sep-2017 [id number]
[2017-09-15] MEDS: ALBUTEROL/IPRATROPIUM (NEB) 3 ML AMP HHN SCH ×2 (14:48→20:18)
[2017-09-15] MEDS: ACETAMINOPHEN 325 MG TAB PO PRN (20:00)
[2017-09-15] MEDS: LORAZEPAM 0.5 MG TAB PO PRN (20:00)
[2017-09-16] VITALS (9 sets, daily range): BP systolic 104–111; BP diastolic 65–72; PULSE 86–99; RESP 18–20
[2017-09-16] MEDS ORDERED: FUROSEMIDE 40 MG INJ IV SCH (06:00)
[2017-09-16] MEDS: PANTOPRAZOLE (EC) 40 MG TAB PO SCH (06:23)
[2017-09-16 06:54] LABS: ABNORMAL IP MESSAGE 1; BASOPHILS % 0.1 % (0.0-2.0); HEMATOCRIT 38.8 % (42.0-52.0); HEMOGLOBIN 12.6 g/dl (14.0-18.0); LYMPHOCYTES # 0.5 10^3/ul (0.8-2.9); LYMPHOCYTES % 3.4 % (15.0-51.0); MEAN CORPUSCULAR HGB CONC 32.5 g/dl (32.0-37.0); MEAN CORPUSCULAR VOLUME 95.6 fl (82.0-101.0); MEAN PLATELET VOLUME 11.1 fl (7.4-10.4); MONOCYTES % 6.2 % (0.0-11.0); NEUTROPHIL # 13.6 10^3/ul (1.6-7.5); NEUTROPHILS % 89.6 % (39.0-77.0); PLATELET COUNT 200 10^3/UL (140-415); POSITIVE DIFF @See below; RED BLOOD COUNT 4.06 10^6/ul (4.70-6.10); RED CELL DISTRIBUTION WIDTH 14.1 % (11.5-14.5); WHITE BLOOD COUNT 15.2 10^3/ul (4.8-10.8)
[2017-09-16 07:18] LABS: MAGNESIUM 2.2 mg/dl (1.7-2.5); PHOSPHORUS 2.7 mg/dl (2.5-4.9)
[2017-09-16 07:25] LABS: ALBUMIN/GLOBULIN RATIO 0.9; BILIRUBIN,INDIRECT 1.2 mg/dl (0-1.1); BILIRUBIN,TOTAL 1.2 mg/dl (0.2-1.3); CALCIUM 8.8 mg/dl (8.4-10.2); CREATININE 1.23 mg/dl (0.61-1.24); POTASSIUM 3.5 mmol/L (3.5-5.1); TOTAL PROTEIN 6.3 g/dl (6.1-8.1)
[2017-09-16] MEDS ORDERED: METHYLPREDNISOLONE 4 MG TAB PO SCH ×4 (07:25→21:00)
[2017-09-16] MEDS: SALMETEROL/FLUTICASONE 250/50 INHA INH SCH (08:17)
[2017-09-16] MEDS: NICOTINE (14 MG/24 HR) PATCH TRANSDERM SCH (08:20)
[2017-09-16] MEDS: ALBUTEROL/IPRATROPIUM (NEB) 3 ML AMP HHN SCH ×2 (08:31→12:49)
--- NOTE | 2017-09-16 12:44 | PN ---
Date/Time of Note Date/Time of Note DATE: 09/16/17 TIME: 12:43 Assessment/Plan VTE Prophylaxis VTE Prophylaxis Intervention: SCD's Lines/Catheters IV [facility] ([facility] Saline Lock Urinary Cath still in place: No Assessment/Plan Assessment/Plan Acute decompensated systolic congestive heart failure Cardiomyopathy Acute kidney injury Tobacco use NSVT Illicit drug use -In discussion with patient, he tells me he was diagnosed with congestive heart failure over a year ago and outside facility. He has been hospitalized approximately 3 times in the past year for congestive heart failure. When asked about illicit drug use, he does admit to the use of methamphetamine as well as "speed", first he said approximately 6 months ago and then later a few weeks ago. He appears more euvolemic. Lasix to daily, Coreg, if renal function continues to improve, would switch hydralazine to DIONNA inhibitor. Maintain potassium above 4.0 and magnesium above 2.0. -d/c planning Subjective 24 Hr Interval Summary Free Text/Dictation the patinet with atypical chest pain Exam/Review of Systems Vital Signs Vitals Vital Signs Date Time Temp Pulse Resp B/P Pulse Ox O2 Delivery O2 Flow Rate FiO2 09/16/17 12:12 97 09/16/17 11:23 98.7 20 105/65 98 09/16/17 08:32 2.0 28 09/16/17 08:00 Nasal Cannula Intake and Output 09/15/17 09/15/17 09/16/17 15:00 23:00 07:00 Intake Total 100 ml 500 ml Output Total 870 ml 950 ml Balance -770 ml -450 ml Results Result Diagram: 09/16/17 0558 09/16/17 0558 Results 24 hrs Laboratory Tests Test 09/16/17 05:58 White Blood Count 15.2 H Red Blood Count 4.06 L Hemoglobin 12.6 L Hematocrit 38.8 L Mean Corpuscular Volume 95.6 Mean Corpuscular Hemoglobin 31.0 Mean Corpuscular Hemoglobin Concent 32.5 Red Cell Distribution Width 14.1 Platelet Count 200 Mean Platelet Volume 11.1 H Neutrophils % 89.6 H Lymphocytes % 3.4 L Monocytes % 6.2 Eosinophils % 0.0 Basophils % 0.1 Nucleated Red Blood Cells % 0.0 Neutrophils # 13.6 H Lymphocytes # 0.5 L Monocytes # 1.0 H Eosinophils # 0.0 Basophils # 0.0 Nucleated Red Blood Cells # 0.0 Sodium Level 137 Potassium Level 3.5 Chloride Level 98 Carbon Dioxide Level 31 Anion Gap 12 Blood Urea Nitrogen 40 H Creatinine 1.23 Glucose Level 149 Calcium Level 8.8 Phosphorus Level 2.7 Magnesium Level 2.2 Total Bilirubin 1.2 Direct Bilirubin 0.00 Indirect Bilirubin 1.2 H Aspartate Amino Transf (AST/SGOT) 136 H Alanine Aminotransferase (ALT/SGPT) 218 H Alkaline Phosphatase 101 Total Protein 6.3 Albumin 3.0 L Globulin 3.30 H Albumin/Globulin Ratio 0.90 Medications Medications Current Medications Ondansetron HCl (Zofran Inj) 4 mg Q6H PRN IV NAUSEA AND/OR VOMITING; Start at 01:30 Nitroglycerin (Nitroglycerin (Sl Tab) 0.4 Mg) 1 tab Q5M PRN SL CHEST PAIN; Start 09/14/17 at 01:30 Acetaminophen (Tylenol Tab) 650 mg Q6H PRN PO PAIN LEVEL 1-3 OR FEVER Last administered on 09/15/17 20:00; Admin Dose 650 MG; Start 09/14/17 at 01:30 Hydralazine HCl (Apresoline) 10 mg BID PO Last administered on 09/16/17 08:18 ; Admin Dose 10 MG; Start 09/14/17 at 12:00 Pantoprazole (Protonix Tab) 40 mg DAILY@06 PO Last administered on 09/16/17 06:23; Admin Dose 40 MG; Start 09/15/17 at 06:00 Lorazepam (Ativan) 0.5 mg Q8H PRN PO ANXIETY Last administered on 09/15/17 20 :00; Admin Dose 0.5 MG; Start 09/14/17 at 15:30 Salmeterol Xinafoate/ Fluticasone (Advair 250/50 Diskus) 1 inh BID INH Last administered on 09/16/17 08:17; Admin Dose 1 INH; Start 09/15/17 at 11:00 Nicotine (Nicoderm 14 Mg/ 24hr) 1 patch DAILY TRANSDERM Last administered on 08:20; Admin Dose 1 PATCH; Start 09/15/17 at 11:00 Methylprednisolone (Medrol) 8 mg HS PO ; Start 09/16/17 at 21:00; Stop at 21:01 Methylprednisolone (Medrol) 4 mg HS PO ; Start 09/17/17 at 21:00; Stop at 21:01 Furosemide (Lasix) 40 mg DAILY@06 IV Last administered on 09/16/17 06:23; Admin Dose 40 MG; Start 09/16/17 at 06:00 Carvedilol (Coreg) 3.125 mg BID PO Last administered on 09/16/17 08:18; Admin Dose 3.125 MG; Start 09/15/17 at 12:00 MARA GALLARDO MD Sep 16, 2017 12:43
--- NOTE | 2017-09-16 14:56 | CONS ---
Date/Time of Note Date/Time of Note DATE: 09/16/17 TIME: 14:55 Assessment/Plan Assessment/Plan Chief Complaint/Hosp Course Impression: 1. Acute respiratory failure. Hypoxic. Most probably secondary to combination of COPD exacerbation and CHF exacerbation. Currently improved. 2. Acute decompensated systolic congestive heart failure. The patient being followed by cardiology. 3. Cardiomyopathy. The patient being followed by cardiology. 4. Nicotine use. 5. Transaminase elevation and hyperbilirubinemia: likely due to CHF exacerbation. Bili is all indirect. Patient cleared HBV due to HBV surface antigen negative and positive HBV antibody. 6. COPD. Continue inhaled bronchodilators. Start maintenance inhalers. 7. gallbladder wall thickening with a gallbladder polyp measuring 0.4 cm. Impression: 1. treat CHF as it it most likely cause of transaminases and indirect bilirubinemia 2. consider hematology eval for indirect bilirubinemia 3. consider surgery eval for gallbladder polyp. Cholecystectomy is indicated for gallbladder polyp of any size and cholecystitis or biliary colic 4. continue all supportive care Problems: Consultation Date/Type/Reason Admit Date/Time Sep 14, 2017 at 01:12 Initial Consult Date 09/15/17 Type of Consultation: GI 24 HR Interval Summary Free Text/Dictation SOB improved, no abdominal pain Exam/Review of Systems Vital Signs Vitals Vital Signs Date Time Temp Pulse Resp B/P Pulse Ox O2 Delivery O2 Flow Rate FiO2 09/16/17 12:49 88 09/16/17 11:23 98.7 105/65 98 09/16/17 08:32 2.0 09/16/17 08:00 Nasal Cannula Intake and Output 09/15/17 09/15/17 09/16/17 15:00 23:00 07:00 Intake Total 100 ml 500 ml Output Total 870 ml 950 ml Balance -770 ml -450 ml Exam Constitutional: alert, oriented, well developed Psych: nl mood/affect, no complaints Head: atraumatic, normocephalic Eyes: EOMI, nl conjunctiva, nl lids, nl sclera ENMT: mucosa pink and moist, nl external ears & nose, nl lips & teeth, nl nasal mucosa & septum Neck: non-tender, supple Respiratory: clear to auscultation, normal air movement Cardiovascular: nl pulses, regular rate and rhythm Gastrointestinal: bowel sounds, non-tender, soft Results Result Diagram: 09/16/17 0558 09/16/17 0558 Results 24 hrs Laboratory Tests Test 09/16/17 05:58 White Blood Count 15.2 H Red Blood Count 4.06 L Hemoglobin 12.6 L Hematocrit 38.8 L Mean Corpuscular Volume 95.6 Mean Corpuscular Hemoglobin 31.0 Mean Corpuscular Hemoglobin Concent 32.5 Red Cell Distribution Width 14.1 Platelet Count 200 Mean Platelet Volume 11.1 H Neutrophils % 89.6 H Lymphocytes % 3.4 L Monocytes % 6.2 Eosinophils % 0.0 Basophils % 0.1 Nucleated Red Blood Cells % 0.0 Neutrophils # 13.6 H Lymphocytes # 0.5 L Monocytes # 1.0 H Eosinophils # 0.0 Basophils # 0.0 Nucleated Red Blood Cells # 0.0 Sodium Level 137 Potassium Level 3.5 Chloride Level 98 Carbon Dioxide Level 31 Anion Gap 12 Blood Urea Nitrogen 40 H Creatinine 1.23 Glucose Level 149 Calcium Level 8.8 Phosphorus Level 2.7 Magnesium Level 2.2 Total Bilirubin 1.2 Direct Bilirubin 0.00 Indirect Bilirubin 1.2 H Aspartate Amino Transf (AST/SGOT) 136 H Alanine Aminotransferase (ALT/SGPT) 218 H Alkaline Phosphatase 101 Total Protein 6.3 Albumin 3.0 L Globulin 3.30 H Albumin/Globulin Ratio 0.90 Medications Medications Current Medications Ondansetron HCl (Zofran Inj) 4 mg Q6H PRN IV NAUSEA AND/OR VOMITING; Start at 01:30 Nitroglycerin (Nitroglycerin (Sl Tab) 0.4 Mg) 1 tab Q5M PRN SL CHEST PAIN; Start 09/14/17 at 01:30 Acetaminophen (Tylenol Tab) 650 mg Q6H PRN PO PAIN LEVEL 1-3 OR FEVER Last administered on 09/15/17 20:00; Admin Dose 650 MG; Start 09/14/17 at 01:30 Hydralazine HCl (Apresoline) 10 mg BID PO Last administered on 09/16/17 08:18 ; Admin Dose 10 MG; Start 09/14/17 at 12:00 Pantoprazole (Protonix Tab) 40 mg DAILY@06 PO Last administered on 09/16/17 06:23; Admin Dose 40 MG; Start 09/15/17 at 06:00 Lorazepam (Ativan) 0.5 mg Q8H PRN PO ANXIETY Last administered on 09/15/17 20 :00; Admin Dose 0.5 MG; Start 09/14/17 at 15:30 Salmeterol Xinafoate/ Fluticasone (Advair 250/50 Diskus) 1 inh BID INH Last administered on 09/16/17 08:17; Admin Dose 1 INH; Start 09/15/17 at 11:00 Nicotine (Nicoderm 14 Mg/ 24hr) 1 patch DAILY TRANSDERM Last administered on 08:20; Admin Dose 1 PATCH; Start 09/15/17 at 11:00 Methylprednisolone (Medrol) 8 mg HS PO ; Start 09/16/17 at 21:00; Stop at 21:01 Methylprednisolone (Medrol) 4 mg HS PO ; Start 09/17/17 at 21:00; Stop at 21:01 Furosemide (Lasix) 40 mg DAILY@06 IV Last administered on 09/16/17 06:23; Admin Dose 40 MG; Start 09/16/17 at 06:00 Carvedilol (Coreg) 3.125 mg BID PO Last administered on 09/16/17 08:18; Admin Dose 3.125 MG; Start 09/15/17 at 12:00 MERNA LEARY MD Sep 16, 2017 14:56
[2017-09-16] MEDS: ACETAMINOPHEN 325 MG TAB PO PRN (15:25)
--- NOTE | 2017-09-16 15:36 | PDOCDIS ---
Discharge Instructions DIAGNOSIS Discharge Diagnosis COPD CHF Cardiomyopathy CONDITION Patient Condition: Stable HOME CARE INSTRUCTIONS: Special Diet: CARDIAC FOLLOW UP/APPOINTMENTS Follow-up Plan Arsh Coyle MD Specialty: Internal Medicine Office Address: [address] [place] [address] Office OTHER ORDERS: Other Orders: 1. Take medications as per prescription. Avoid taking Aldactone until your kidney function improves. 2. Please follow-up with your primary care physician 1 week. If you do not have a primary care physician, please call Dr. Arsh Coyle's office. 3. Take a low-cholesterol diet. 4. Avoid using recreational drugs and tobacco. 5. Resume activities as tolerated. 6. Call 911 or go to the nearest emergency room if you have any chest pain or significant shortness of breath. DUARTE HERNANDEZ NP Sep 16, 2017 15:36
[2017-09-16] MEDS ORDERED: PRED5TAB50 PO (15:39)
[2017-09-16] MEDS ORDERED: ADV25050 INH (15:39)
[2017-09-16] MEDS ORDERED: ASPI-535 PO (15:39)
[2017-09-16] MEDS ORDERED: ALBU8.5H3 INH (15:39)
[2017-09-16] MEDS ORDERED: HYDR-3670 PO (15:39)
[2017-09-16] MEDS ORDERED: CARV3.1260 PO (15:39)
[2017-09-16] MEDS ORDERED: FURO40TA4 PO (15:39)
--- NOTE | 2017-09-16 18:40 | DS ---
Date/Time of Note Date/Time of Note DATE: 09/16/17 TIME: 18:33 Discharge Summary Admission/Discharge Info Admit Date/Time Sep 14, 2017 at 01:12 Discharge Date/Time Sep 16, 2017 at 17:55 Discharge Diagnosis 1. Acute respiratory failure. Hypoxic. Resolved. 2. Acute decompensated systolic congestive heart failure. 3. Cardiomyopathy. 4. Nicotine use. 5. Acute kidney injury. Nonoliguric. Resolved. 6. COPD. 7. Multiple small pulmonary nodules. 8. Transaminitis with hyperbilirubinemia. 9. Nonsustained ventricular tachycardia. 10. Pulmonary hypertension. Patient Condition: Stable Consults 1. Edgard Decker DO, Cardiology. 2. Óscar Ewing MD, Cardiology. 3. Zeb Polo MD, Gastroenterology. Procedures Chest CT IMPRESSION: Multiple nodules throughout the lungs possibly due to infection or neoplasm. These measure up to 7 mm in the left lower lobe. Follow-up is recommended in 3- 6 months and 18-24 months. Pulmonary emphysematous changes. Debris within the graciela and mainstem bronchi. Mediastinal and bilateral hilar adenopathy which is nonspecific. Small right pleural effusion. Compression deformities throughout the thoracic spine which are likely chronic unless the patient has acute back pain. Liver Ultrasound IMPRESSION: 1. Gallbladder polyp measuring 0.4 cm. Follow-up ultrasound in 6 months is advised. 2. Mild gallbladder wall thickening. No gallstones. 3. Hyperechoic right kidney which may indicate medical renal disease. 4. Mild right hydronephrosis with no obstructing lesion visualized. Clinical correlation is advised. 5. Otherwise normal right upper quadrant abdomen ultrasound. 2D Echocardiogram Conclusions 1. Normal left ventricular wall thickness. Severe enlargement of left ventricle cavity. Severe global left ventricular systolic dysfunction. Ejection fraction is visually estimated at 20 %. Abnormal Diastolic Function. 2. Normal right ventricular size. Normal right ventricular systolic function. 3. There is moderate enlargement of left atrium. 4. The right atrium is normal in size. 5. Moderate to severe mitral valve regurgitation. 6. No significant aortic stenosis. Trace aortic valve regurgitation. 7. Estimated peak PA systolic pressure 59 mmHg. There is mild to moderate tricuspid regurgitation. 8. Normal pericardium with no significant pericardial effusion. Hx of Present Illness Chief complaint: Shortness of breath The patient stated he has had some gradual worsening of shortness of breath for 3 days. He said he had a slight dry cough but no fever. He said he has a history of heart failure and that his breathing got worse about 2-3 hours prior to arrival to the ED. Denied any chest pain, denied any swelling in the legs. The patient was brought in by EMS and had been given 5 sprays of sublingual nitroglycerin prior to arrival for heart failure and not for chest pain. Patient had a hard time wearing the CPAP mask by EMS but agreed to do it in the ED to avoid intubation. Of note in the ED patient was agitated and he was pulling off his BiPAP. He was given Ativan. Allergies: NKDA Medications: See MAR Hospital Course The patient was admitted to inpatient setting. A cardiology consult was obtained. The patient had acute respiratory failure most probably secondary to a combination of COPD exacerbation and CHF exacerbation. The patient responded well to diuretic therapy and IV steroids along with inhaled bronchodilators. The patient's 2D echocardiogram showed ejection fraction 20% with abnormal diastolic function. The etiology of the patient's underlying cardiomyopathy is unclear. The patient verbalized that he uses recreational drugs. For unclear reasons, the patient's urine drug abuse screen was not sent although it was ordered on the day of admission. The patient was started on beta-blockers. The patient was not started on any DIONNA inhibitor since the patient was in acute renal failure. On the other hand, the patient also had borderline low blood pressure readings. Once the patient's blood pressure was fairly better, the patient was also started on hydralazine. Ideally, the patient needs to be started on DIONNA inhibitors and possibly an aldosterone antagonist once the patient's blood pressure is stable and once the patient's renal function is back to baseline. As mentioned earlier, the patient was noticed to acute kidney injury upon presentation with a BUN and creatinine of 48 and 2.02 respectively. Etiology of the patient's acute kidney injury remained unclear. Nevertheless, the patient's renal function improved with careful use of nephrotoxic medications. The patient has underlying COPD. The patient was continued on tapering dose of steroids. The patient was maintained on inhaled bronchodilators and towards the end of the patient's hospital course, the patient was started on maintenance inhalers. The patient was also noticed to have transaminitis with hyperbilirubinemia. Hence a gastroenterology consult was obtained. As per the shipping lead, the patient's a transaminitis with hyperbilirubinemia could be most probably secondary to his underlying CHF exacerbation. The patient's liver ultrasound also revealed a 0.4 cm gallbladder polyp.The patient's hepatitis B serology was positive. However, hepatitis B IgM antibody confirmation is pending at this time. Nevertheless, the patient did not have any abdominal pain or any other symptoms suggestive of cholecystitis or biliary colic. The patient can follow up with outpatient primary care physician for repeat ultrasound in 6 months as advised by the radiologist. The patient's chest CT scan also showed multiple nodules throughout the lungs measuring up to 7 mm. The patient needs follow-up CT scan in 3-[address] also revealed pulmonary emphysematous changes. The patient also had nonsustained ventricular tachycardia. However, this was converted to normal sinus rhythm. The patient was maintained on beta-blockers as per cardiology. The patient had a stable hospital course. The patient's symptoms improved with the treatment strategy. The patient is stable to be discharged to be followed up with outpatient primary care physician. Discharge Instructions 1. Take medications as per prescription. Avoid taking Aldactone until your kidney function improves. 2. Please follow-up with your primary care physician 1 week. If you do not have a primary care physician, please call Dr. Arsh Coyle's office. 3. Take a low-cholesterol diet. 4. Avoid using recreational drugs and tobacco. 5. Resume activities as tolerated. 6. Call 911 or go to the nearest emergency room if you have any chest pain or significant shortness of breath. Patient verbalized understanding of his discharge instructions. At this time I would like to thank all the consultants for seeing the patient, doing the necessary procedures, and providing clinical recommendations. Case discussed with Dr. Putnam. Home Meds Active Scripts Albuterol Sulfate* (Proair HFA*) 8.5 Gm Hfa.aer.ad, 2 PUFF INH Q4 for SHORTNESS OF BREATH, #1 INHALER Prov:DUARTE HERNANDEZ NP 09/16/17 Prednisolone* (Prednisolone*) 5 Mg Tablet, 5 MG PO DAILY, #2 TAB Prov:DUARTE HERNANDEZ NP 09/16/17 Aspirin Ec (Aspir 81) 81 Mg Tablet.dr 81 MG PO DAILY, #30 TAB Prov:DUARTE HERNANDEZ NP 09/16/17 Furosemide* (Furosemide*) 40 Mg Tablet, 40 MG PO DAILY, #30 TAB Prov:DUARTE HERNANDEZ NP 09/16/17 Hydralazine Hcl* (Hydralazine Hcl*) 10 Mg Tablet, 10 MG PO BID, #90 TAB Prov:DUARTE HERNANDEZ KILN PACKER 09/16/17 Salmeterol Xinaf/Fluticasone* (Advair*) 250-50 Diskus Inhaler, 1 INH INH BID, #1 Prov:DUARTE HERNANDEZ KILN PACKER 09/16/17 Carvedilol* (Carvedilol*) 3.125 Mg Tablet, 3.125 MG PO BID, #60 TAB Prov:DUARTE HERNANDEZ KILN PACKER 09/16/17 Follow-up Plan Arsh Coyle MD Specialty: Internal Medicine Office Address: [address] [place] [address] [place] [address] Office Primary Care Provider Care Physician No Primary Time spent on discharge: > 30 minutes Pending Labs Laboratory Tests Test 09/16/17 05:58 White Blood Count 15.210^3/ul (4.8-10.8) Red Blood Count 4.0610^6/ul (4.70-6.10) Hemoglobin 12.6g/dl (14.0-18.0) Hematocrit 38.8% (42.0-52.0) Mean Corpuscular Volume 95.6fl (82.0-101.0) Mean Corpuscular Hemoglobin 31.0pg (29.0-33.0) Mean Corpuscular Hemoglobin Concent 32.5g/dl (32.0-37.0) Red Cell Distribution Width 14.1% (11.5-14.5) Platelet Count 04106^3/UL (140-415) Mean Platelet Volume 11.1fl (7.4-10.4) Neutrophils % 89.6% (39.0-77.0) Lymphocytes % 3.4% (15.0-51.0) Monocytes % 6.2% (0.0-11.0) Eosinophils % 0.0% (0.0-7.0) Basophils % 0.1% (0.0-2.0) Nucleated Red Blood Cells % 0.0/100WBC (0.0-0.0) Neutrophils # 13.610^3/ul (1.6-7.5) Lymphocytes # 0.510^3/ul (0.8-2.9) Monocytes # 1.010^3/ul (0.3-0.9) Eosinophils # 0.010^3/ul (0.0-0.5) Basophils # 0.010^3/ul (0.0-0.1) Nucleated Red Blood Cells # 0.010^3/ul (0.0-0.0) Sodium Level 137mmol/L (135-144) Potassium Level 3.5mmol/L (3.5-5.1) Chloride Level 98mmol/L (97-110) Carbon Dioxide Level 31mmol/L (21-31) Anion Gap 12 (8-16) Blood Urea Nitrogen 40mg/dl (7-20) Creatinine 1.23mg/dl (0.61-1.24) Glucose Level 149mg/dl (70-220) Calcium Level 8.8mg/dl (8.4-10.2) Phosphorus Level 2.7mg/dl (2.5-4.9) Magnesium Level 2.2mg/dl (1.7-2.5) Total Bilirubin 1.2mg/dl (0.2-1.3) Direct Bilirubin 0.00mg/dl (0.00-0.20) Indirect Bilirubin 1.2mg/dl (0-1.1) Aspartate Amino Transf (AST/SGOT) 136IU/L (15-46) Alanine Aminotransferase (ALT/SGPT) 218IU/L (13-69) Alkaline Phosphatase 101IU/L (42-121) Total Protein 6.3g/dl (6.1-8.1) Albumin 3.0g/dl (3.3-4.9) Globulin 3.30g/dl (1.3-3.2) Albumin/Globulin Ratio 0.90 Microbiology Date/Time Source Procedure Growth Status 09/16/17 05:34 Feces Clostridium difficile Toxin Assay - Final Complete DUARTE HERNANDEZ NP Sep 16, 2017 18:40
[2017-09-16 21:21] LABS: BARBITURATES Negative (NEGATIVE); BENZODIAZEPINES Negative (NEGATIVE); CANNABINOIDS Negative (NEGATIVE); COCAINE Negative (NEGATIVE); OPIATES Negative (NEGATIVE)
[2017-09-17] MEDS ORDERED: METHYLPREDNISOLONE 4 MG TAB PO SCH (21:00)
== END 2017-09-16 17:55 | disposition home or self-care (01) | DRG 291 ==
LOC: E/R 22:58 → TEL 09-14 01:12 → EDBD 09-14 01:12
PROVIDERS: ADMIT Family Medicine; ATTEND Family Medicine
DX: I11.0 Hypertensive heart disease with heart failure (principal); J96.01 Acute respiratory failure with hypoxia; I47.2 Ventricular tachycardia; N17.9 Acute kidney failure, unspecified; J44.1 Chronic obstructive pulmonary disease with (acute) exacerbation; I50.23 Acute on chronic systolic (congestive) heart failure; F17.210 Nicotine dependence, cigarettes, uncomplicated; I42.9 Cardiomyopathy, unspecified; F15.10 Other stimulant abuse, uncomplicated
CPT/HCPCS: 36415; 36600; 71010; 71250; 76705; 80048; 80053; 80061; 80076; 80307; 81001; 81003; 82550; 82553; 82803; 82962; 83036; 83735; 83880; 84100; 84443; 84484; 85025; 86704; 86706; 86708; 86709; 86803; 87045; 87075; 87081; 87340; 93306; 94640; 94644; 94660; 94664; 96374; 96375; C9113; J1940; J2060; J2920; J2930; J3475; J7509